=== PATIENT | female | born 1970 | race Two or more races ===

== ENCOUNTER 2017-09-16 10:04 | Observation (INO) | payer MEDICAID, OTHER ==
[~2017-09-16] VITALS: Ht 162.6 cm; Wt 68.0 kg
[2017-09-16 10:11] VITALS: BP 140/100
== END 2017-09-16 15:54 | disposition left against medical advice (07) | DRG 756 ==
LOC: ER 10:04 → OVERFLOW 12:14 → ER 15:54
PROVIDERS: ADMIT Family Medicine; ATTEND Family Medicine
DX: F41.9 Anxiety disorder, unspecified (principal)
CPT/HCPCS: G0378